=== PATIENT | male | born 1975 | race Caucasian/White ===

== ENCOUNTER 2024-02-23 16:47 | Inpatient (IN) | payer MEDICAID, OTHER ==
[~2024-02-23] VITALS: Ht 177.8 cm; Wt 103.9 kg
[2024-02-23 16:50] VITALS: O2SAT 98
[2024-02-23] MEDS: NITROGLYCERIN 0.4MG TABLET SL SL PRN (17:10)
[2024-02-23] MEDS: ASPIRIN 81MG TABLET PO ONE (17:10)
[2024-02-23 18:05] LABS: CHLORIDE 104 mEq/L (98-107); POTASSIUM 3.2 mEq/L (3.5-5.1); SODIUM 141 mEq/L (136-145)
[2024-02-23 18:06] LABS: CARBON DIOXIDE 25 mEq/L (21-32)
[2024-02-23 18:07] LABS: CALCIUM 9.6 mg/dL (8.7-10.4)
[2024-02-23 18:11] LABS: CREATININE 0.7 mg/dL (0.6-1.3); GLUCOSE 128 mg/dL (70-105); UREA NITROGEN BLOOD 12 mg/dL (9-23)
[2024-02-23 18:13] LABS: TROPONIN I HIGH SENSITIVITY 4 ng/L (3.0-53)
[2024-02-23 18:16] LABS: INR 1.1; PARTIAL THROMBOPLASTIN TIME 29.1 sec (23.4-31.0); PROTHROMBIN TIME 11.8 sec (9.6-11.0)
[2024-02-23] MEDS: ONDANSETRON HCL 4MG/2ML INJ IV ONE (19:02)
[2024-02-23] MEDS: MORPHINE SULFATE 4 MG/ML INJ (FOR IV/IM USE) IV ONE (19:02)
[2024-02-23] MEDS: NITROGLYCERIN 0.4MG/HR PATCH TOP ONE (19:09)
[2024-02-23 20:42] LABS: BASOPHILS % 0.8 % (0.0-2.0); EOSINOPHILS % 0.4 % (0.0-5.0); HEMATOCRIT. 42.7 % (42.0-52.0); HEMOGLOBIN. 14.9 g/dL (14.0-18.0); LYMPHOCYTES % 14.4 % (20.0-50.0); MEAN CORPUSCULAR HEMOGLOBIN 33.1 pg (28.0-32.0); MEAN CORPUSCULAR VOLUME 94.8 fL (80.0-94.0); MEAN PLATELET VOLUME 7.8 fl (7.4-10.4); MONOCYTES % 5.9 % (2.0-8.0); NEUTROPHILS % 78.5 % (40.0-76.0); PLATELET 97 x1000/uL (130-400); RED CELL DISTRIBUTION WIDTH 14.7 % (11.6-14.6); WHITE BLOOD COUNT 8.2 x1000/uL (4.5-11.0)
[2024-02-23] MEDS ORDERED: HYDROCODONE/ACETAMINOPHEN 10/325MG TABLET PO PRN (21:00)
[2024-02-23] MEDS: HYDROCODONE/ACETAMINOPHEN 10/325MG TABLET PO PRN (21:10)
[2024-02-23] MEDS ORDERED: NALOXONE HCL 0.4MG/ML VIAL IV PRN (21:45)
[2024-02-23 21:52] VITALS: BP 133/55; PULSE 77; RESP 18; TEMP 36.28068; TEMP 36.3068; O2SAT 99
[2024-02-23] MEDS ORDERED: ASPI-1406 PO (22:41)
[2024-02-23] MEDS ORDERED: ATOR40TA70 PO (22:41)
[2024-02-23] MEDS ORDERED: IVAB5TAB3 PO (22:41)
[2024-02-23] MEDS ORDERED: FURO40TA5 PO (22:41)
[2024-02-23] MEDS ORDERED: SACU1TAB7 PO (22:41)
[2024-02-23] MEDS ORDERED: CARV6.2548 PO (22:41)
[2024-02-23] MEDS ORDERED: ALLO300T2 PO (22:41)
[2024-02-23] MEDS ORDERED: HYDR-4001 PO (22:41)
[2024-02-23 22:46] LABS: TROPONIN I HIGH SENSITIVITY 9 ng/L (3.0-53)
[2024-02-24] VITALS (7 sets, daily range): BP systolic 103–125; BP diastolic 49–75; PULSE 59–78; RESP 18–20; TEMP 36.16956–36.55848; O2SAT 96–99
[2024-02-24 07:36] LABS: CALCIUM 9.3 mg/dL (8.7-10.4); CARBON DIOXIDE 32 mEq/L (21-32); CHLORIDE 104 mEq/L (98-107); POTASSIUM 3.4 mEq/L (3.5-5.1); SODIUM 144 mEq/L (136-145)
[2024-02-24 07:41] LABS: TROPONIN I HIGH SENSITIVITY 6 ng/L (3.0-53)
[2024-02-24 07:42] LABS: CREATININE 0.6 mg/dL (0.6-1.3); GLUCOSE 79 mg/dL (70-105); LDL CHOLESTEROL 52 mg/dL (5-100); TRIGLYCERIDE 45 mg/dL (0-150); UREA NITROGEN BLOOD 12 mg/dL (9-23)
[2024-02-24 07:44] LABS: CHOLESTEROL 149 mg/dL (<200); HDL CHOLESTEROL 83 mg/dL (>55)
[2024-02-24 07:49] LABS: HEMATOCRIT 39.2 % (42.0-52.0); HEMOGLOBIN 13.8 g/dL (14.0-18.0); MEAN CORPUSCULAR HEMOGLOBIN 33.8 pg (28.0-32.0); MEAN CORPUSCULAR HGB CONC 35.3 g/dL (31.0-37.0); MEAN CORPUSCULAR VOLUME 95.8 fL (80.0-94.0); PLATELET 71 x1000/uL (130-400); RED CELL DISTRIBUTION WIDTH 14.4 % (11.6-14.6); WHITE BLOOD COUNT 5.9 x1000/uL (4.5-11.0)
[2024-02-24] MEDS ORDERED: CARVEDILOL 3.125 MG TABLET PO SCH (09:00)
[2024-02-24] MEDS ORDERED: SACUBITRIL/VALSARTAN 24MG/26MG TABLET PO SCH (09:00)
[2024-02-24] MEDS: ENOXAPARIN 30MG/0.3ML SYR SUBCUT SCH (09:00)
[2024-02-24] MEDS: METOPROLOL TARTRATE 50MG TABLET PO SCH (09:00)
[2024-02-24] MEDS: ASPIRIN 81MG TABLET PO SCH (09:23)
[2024-02-24] MEDS: ALLOPURINOL 300 MG TABLET PO SCH (09:23)
[2024-02-24] MEDS: FUROSEMIDE 40MG TABLET PO SCH (09:23)
[2024-02-24] MEDS ORDERED: SACU1TAB7 MT (11:21)
[2024-02-24] MEDS ORDERED: *PATIENT'S OWN MEDICATION STORAGE XX SCH (15:15)
[2024-02-24 18:08] LABS: *AMPHETAMINES SCREEN URINE NEGATIVE (NEGATIVE)
[2024-02-24 18:09] LABS: *BARBITURATES SCREEN URINE NEGATIVE (NEGATIVE); *BENZODIAZEPINES SCREEN URINE NEGATIVE (NEGATIVE); *COCAINE SCREEN URINE NEGATIVE (NEGATIVE); CANNABINOID URINE SCREEN NEGATIVE (NEGATIVE); ECSTASY MDMA SCREEN URINE NEGATIVE (NEGATIVE); METHADONE URINE SCREEN NEGATIVE (NEGATIVE); OPIATES URINE SCREEN PRESUMPTIVE POSITIVE (NEGATIVE); PHENCYCLIDINE URINE SCREEN NEGATIVE (NEGATIVE)
[2024-02-24] MEDS: ATORVASTATIN CALCIUM 40MG TABLET PO SCH (21:16)
[2024-02-24] MEDS: SACUBITRIL/VALSARTAN 49MG/51MG TABLET PO SCH (21:17)
[2024-02-24] MEDS ORDERED: ZOLPIDEM TARTRATE 5MG TABLET PO PRN (22:00)
== END 2024-02-24 23:10 | disposition left against medical advice (07) | DRG 291 ==
LOC: ER 16:47 → EDBEDREQTM 17:02 → EDBEDREQ 17:02 → EDBEDREQTM 19:48 → EDBEDREQ 19:48 → 7WST 21:59
PROVIDERS: ADMIT Internal Medicine; ATTEND Internal Medicine
DX: I11.0 Hypertensive heart disease with heart failure (principal); I50.43 Acute on chronic combined systolic (congestive) and diastolic (congestive) heart failure; E66.9 Obesity, unspecified; E78.5 Hyperlipidemia, unspecified; Z20.822 Contact with and (suspected) exposure to COVID-19; Z53.29 Procedure and treatment not carried out because of patient's decision for other reasons; I25.10 Atherosclerotic heart disease of native coronary artery without angina pectoris; I25.2 Old myocardial infarction; Z68.32 Body mass index [BMI] 32.0-32.9, adult
CPT/HCPCS: 36415; 71045; 80048; 80061; 80305; 83036; 83880; 84484; 85025; 85027; 85379; 87426; 93005; 99285; A4606; A4663; J1650; J2270; J2405